=== PATIENT | female | born 1955 | race Hispanic/Latino ===

== ENCOUNTER 2020-07-09 13:30 | Outpatient (CLI) | payer MEDICARE ==
--- NOTE | 2020-07-09 14:57 | Cat Scan Report ---
CT LUMBAR SPINE: 07/09/2020 INDICATION / CLINICAL INFORMATION: BACK PAIIN. COMPARISON: CT lumbar spine 01/21/2008 FINDINGS: CT images of the lumbar spine were obtained. Images are evaluated in the axial, coronal, and sagittal planes. Prominent right convex scoliosis is centered at the L3 level. Degenerative disc space narrowing is p resent at all levels. Degenerative disc space narrowing as progressed since the prior exam from 2007. Patient is status post laminectomy at the L3-4 and L4-5 levels. Laminectomy has been performed since the prior exam from 2007. LEVEL BY LEVEL ANALYSIS: L5-S1: Mild symmetric diffuse disc bulging. L4-5: Status post bilateral laminectomy. Disc space narrowing and mild diffuse disc bulging. No evide nce of nerve root compression. Moderate facet degenerative changes. L3-4: Status post laminectomy. Disc space narrowing and diffuse disc bulging is present. Left-sided f oraminal narrowing is present, with possible impingement upon the exiting left L3 nerve root. L2-3: Minimal diffuse disc bulging. L1-2: No significant abnormality. PARASPINAL STRUCTURES: Unremarkable. IMPRESSION: Postoperative and degenerative changes as detailed above. All CT scans at this location are performed using dose reduction to ALARA by means of automated expos ure control. Signer Name: Benoit Arias MD Signed: 07/09/2020 2:53 PM Workstation Name: [id number]
--- NOTE | 2020-07-12 07:53 | Mammography Report ---
DIGITAL SCREENING MAMMOGRAM WITH CAD, 07/09/2020 CLINICAL INFORMATION / INDICATION: Routine screening mammography. TECHNIQUE: Digital right 2D mammography was obtained in the craniocaudal and mediolateral oblique pr ojections. This examination was interpreted with the benefit of Computer-Aided Detection analysis. COMPARISON: None FINDINGS: Breast Density: There are scattered areas of fibroglandular density. No dominant mass, suspicious calcifications, or architectural distortion in either breast. IMPRESSION: No mammographic evidence of malignancy. Follow up recommendation: Routine yearly BI-RADS Category 1: Negative. A "normal" or negative report should not discourage follow up or biopsy of a clinically significant f inding. A written summary of these findings will be mailed to the patient. The patient will be entered into a mammography reporting system which will generate a reminder letter for the patient's next appointmen t at the appropriate interval. The [employer] recommends yearly mammograms starting at age 40 and continuing as l darrell as a woman is in good health. Breast MRI is recommended for women with an approximate 20-25% or greater lifetime risk of breast cancer, including women with a strong family history of breast or ova robbin cancer or who have been treated for Hodgkin's disease. Signer Name: Keyon Dougherty MD Signed: 07/12/2020 7:49 AM Workstation Name: [id number]
== END 2020-07-09 13:31 | disposition home or self-care (01) ==
LOC: CT 13:30
PROVIDERS: ATTEND Anesthesiology
DX: Z12.31 Encounter for screening mammogram for malignant neoplasm of breast (principal); M51.26 Other intervertebral disc displacement, lumbar region; M48.061 Spinal stenosis, lumbar region without neurogenic claudication; M54.17 Radiculopathy, lumbosacral region; M47.816 Spondylosis without myelopathy or radiculopathy, lumbar region
CPT/HCPCS: 72131; 77067